=== PATIENT | male | born 1945 | race Caucasian/White ===

== ENCOUNTER → 2016-10-16 | Day surgery (SDC) | payer OTHER ==
[~2016-10-16] MED LIST: ACETAMINOPHEN PO; ACETAMINOPHEN500 M5 PO; ASPIRIN PO; ASPIRIN81 MG PO; ATORVASTATIN CA80 MG PO; BACTRIM DS TABL1 TA1 PO; BACTRIM DS TABL1 TAB PO; CELEXA PO; CIPRO250 MG PO; CRESTOR40 MG PO; DIGESTIVE PROB250 MG PO; FENOFIBRATE160 MG PO; FLOMAX0.4 M1 DOB; FLOMAX0.4 M1 PO; FLONASE16 GM; FLOVENT DI50 MCG/DIS INH; FLOVENT DISKU100 MCG INH; GLUCOPHAGE500 M1 PO; GLUCOPHAGE850 MG PO; GLUCOTROL PO; HYDROCODON-ACE1 EAC7; HYDROCODONE-APA1 T57 PO; KEFLEX PO; KEFLEX500 MG PO; LEVAQUIN750 MG PO; LIPITOR PO; LIPITOR80 MG PO; LISINOPRIL10 MG PO; LO-DOSE ASPIRIN81 M1 PO; MAGNESIUM400 MG PO; METFORMIN HCL500 M1 PO; NIASPAN1000 M1 PO; OMEPRAZOLE20 M2 PO; PRILOSEC PO; PROBIOTIC1 EAC1 PO; TEMAZEPAM PO; TRICOR PO; VITAMIN D-32000 UNI2 PO; VITAMIN D2000 UNIT PO; ZETIA PO; ZYRTEC10 M1 PO; ZYRTEC10 M2 PO
--- NOTE | ~2016-10-16 | OR ---
Unit #: [id number] #: [id number] Patient: PEDRO MARTINEZ [id number] [address] [place], [place] [address] [id number] MR#: [id number] NAME: PEDRO MARTINEZ ROOM: Date of Procedure: 10/16/2016 Admission Date: 10/16/2016 Surgeon: Hans Lopez M.D. : 1945 Attending Physician: Chano Alonso M.D. Primary Care Physician: Bran Santos M.D. PROCEDURE OPERATIVE NOTE PREOPERATIVE DIAGNOSIS Urinary retention. POSTOPERATIVE DIAGNOSIS Urinary retention. PROCEDURES PERFORMED 1. Cystoscopy. 2. Complex catheter placement. 3. Bladder irrigation. ANESTHESIA Local. INDICATION FOR PROCEDURE Mr. Martinez is a 71-year-old gentleman who is followed by my partner, Dr. Pedro Vail for BPH. He presented in urinary retention. He is on b.i.d. Flomax. The nursing staff was unable to pass a Jara catheter. The risks, benefits and alternatives including bleeding, infection, damage to adjacent structures, need for further surgery, as well as the risks of anesthesia were explained to the patient and informed consent was obtained. He wished to proceed. FINDINGS Two plus bilobar hyperplasia of the prostate with false passage in the posterior prostate. PROCEDURE The patient was placed in the supine position. Genitalia were prepped and draped in the usual sterile fashion. A Uro-jet was passed. I passed a flexible cystoscope. Visibility was somewhat poor due to blood in the urethra, but he had a false passage in the posterior urethra. I was able to look my way beyond this. His prostate has severe 2+ bilobar hyperplasia. Unlimited visibility of the bladder had no tumor, stones or masses. I passed a sensory wire into the bladder. I removed the cystoscope. I passed a 20-[employer]-tipped catheter. The urine was slightly bloody. It irrigated clear. The patient tolerated the procedure well without complications. PLAN The patient will follow up with Dr. Vail in one week. He may need consideration for surgical management of his urinary retention as he is on maximum dose of alpha liz. Unit #: [id number] #: [id number] Patient: PEDRO MARTINEZ Dictated by... Hans Lopez M.D. MDP/gz TD: 10/16/2016 13:57 JOB #: [id number] PROCEDURE OPERATIVE NOTE X Hans Lopez MD PROCEDURE OPERATIVE NOTE
[2016-10-16 09:28] LABS: URINE SOURCE CLEAN CATCH
[2016-10-16 09:34] LABS: BASOPHIL% 0.5 % (0-2.5); EOSINOPHIL% 0.2 % (0.0-7.0); HEMATOCRIT 42.5 % (38.0-50.0); HEMOGLOBIN 14.4 gm/dL (13.0-16.0); LYMPHOCYTE# 1.3 X10e3 (1.0-3.5); LYMPHOCYTE% 13.5 % (17.0-45.0); MEAN CELL VOLUME 87.1 FL (83-96); MEAN CORPUSCULAR HEMOGLOBIN 29.5 PG (28-34); MEAN CORPUSCULAR HGB CONC 33.8 g/dL (30-36); MEAN PLATELET VOLUME 8.8 FL (6.5-11.5); MONOCYTE# 0.4 X10e3 (0-1.0); MONOCYTE% 4.7 % (3.0-12.0); NEUTROPHIL# 7.7 X10e3 (1.5-7.1); NEUTROPHIL% 81.1 % (40-75); PLATELET COUNT 224 X10e3 (140-420); RED BLOOD COUNT 4.88 X10e (3.90-5.60); RED CELL DISTRIBUTION WIDTH 13.2 % (11.0-15.5); WHITE BLOOD COUNT 9.4 X10e3 (4.0-10.5)
[2016-10-16 09:35] LABS: URINE APPEARANCE TURBID; URINE BILIRUBIN NEG (NEG); URINE BLOOD 3+ (NEG); URINE COLOR RED; URINE GLUCOSE 500 MG/DL (NEG); URINE KETONE TRACE (NEG); URINE LEUKOCYTE ESTERASE 1+ (NEG); URINE NITRATE NEG (NEG); URINE PROTEIN 1+ (NEG); URINE SPECIFIC GRAVITY 1.018 (1.003-1.035); URINE UROBILINOGEN 0.2 MG/DL (NEG)
[2016-10-16 09:37] LABS: CULTURE INDICATED? YES; URBCS1 AUWI INNUM /[HPF] (0-2); URINE BACTERIA AUWI NEG (NEGATIVE); URINE SQUAMOUS EPITHELIAL CELL MOD /[HPF]
[2016-10-16 09:39] LABS: DIFF IND NO
[2016-10-16 09:56] LABS: BLOOD UREA NITROGEN 14 mg/dL (9-23); BUN/CREATININE RATIO 15.55; CALCIUM SERUM 9.4 mg/dL (8.4-10.2); CARBON DIOXIDE 20 mmol/L (22-31); CHLORIDE 99 mmol/L (100-111); CREATININE SERUM 0.9 mg/dL (0.6-1.4); GLOM FILT RATE Estimated ABOVE60 mL/min (>60); GLUCOSE FASTING 246 mg/dL (70-110); POTASSIUM 4.2 mmol/L (3.5-5.1); SODIUM 134 mmol/L (135-145)
[2016-10-16 10:06] LABS: URINE TRANSITIONAL EPI CELLS FEW /[HPF]
[2016-10-16 13:09] LABS: URINE SOURCE CATH
[2016-10-16 13:21] LABS: URINE APPEARANCE CLOUDY; URINE BILIRUBIN NEG (NEG); URINE BLOOD 3+ (NEG); URINE COLOR RED; URINE GLUCOSE 500 MG/DL (NEG); URINE KETONE TRACE (NEG); URINE LEUKOCYTE ESTERASE 1+ (NEG); URINE NITRATE NEG (NEG); URINE PH 5.5 (5-8); URINE PROTEIN 1+ (NEG); URINE SPECIFIC GRAVITY 1.016 (1.003-1.035); URINE UROBILINOGEN 0.2 MG/DL (NEG)
[2016-10-16 13:25] LABS: URBCS1 AUWI INNUM /[HPF] (0-2); URINE BACTERIA AUWI NEG (NEGATIVE); URINE SQUAMOUS EPITHELIAL CELL NONE SEEN /[HPF]
== END | disposition home or self-care (01) ==
LOC: CED 09:54 → CSUR 11:09
PROVIDERS: Emergency Medicine; Urology
DX: R33.9 Retention of urine, unspecified (principal); Z88.8 Allergy status to other drugs, medicaments and biological substances; Z79.899 Other long term (current) drug therapy; Z79.82 Long term (current) use of aspirin
CPT/HCPCS: 36415; 80048; 81003; 85025; 87086; 96374; 99285; J0690; J2270; J2405

== ENCOUNTER 2016-11-21 02:41 | Emergency (ER) | payer OTHER ==
[~2016-11-21 02:41] MED LIST changes: -ACETAMINOPHEN PO; -ASPIRIN81 MG PO; -ATORVASTATIN CA80 MG PO; -CIPRO250 MG PO; -FLOMAX0.4 M1 DOB; -FLOVENT DI50 MCG/DIS INH; -HYDROCODON-ACE1 EAC7; -METFORMIN HCL500 M1 PO; -PROBIOTIC1 EAC1 PO; -VITAMIN D-32000 UNI2 PO
[2016-11-21] MEDS ORDERED: CIPRO250 MG PO (02:48)
[2016-11-21] MEDS ORDERED: ACETAMINOPHEN PO (02:49)
[2016-11-21] MEDS ORDERED: ASPIRIN81 MG PO (02:49)
[2016-11-21] MEDS ORDERED: FENOFIBRATE160 MG PO (02:50)
[2016-11-21] MEDS ORDERED: ATORVASTATIN CA80 MG PO (02:50)
[2016-11-21] MEDS ORDERED: FLOVENT DI50 MCG/DIS INH (02:51)
[2016-11-21] MEDS ORDERED: LISINOPRIL10 MG PO (02:53)
[2016-11-21] MEDS ORDERED: GLUCOTROL PO (02:53)
[2016-11-21] MEDS ORDERED: MAGNESIUM400 MG PO (02:54)
[2016-11-21] MEDS ORDERED: METFORMIN HCL500 M1 PO (02:55)
[2016-11-21] MEDS ORDERED: CRESTOR40 MG PO (02:56)
[2016-11-21] MEDS ORDERED: OMEPRAZOLE20 M2 PO (02:56)
[2016-11-21] MEDS ORDERED: PROBIOTIC1 EAC1 PO (02:56)
[2016-11-21] MEDS ORDERED: FLOMAX0.4 M1 DOB (02:57)
[2016-11-21] MEDS ORDERED: ZYRTEC10 M1 PO (02:58)
[2016-11-21] MEDS ORDERED: VITAMIN D-32000 UNI2 PO (02:58)
[2016-11-21] MEDS ORDERED: HYDROCODON-ACE1 EAC7 (02:59)
[2016-11-21 03:07] LABS: BASOPHIL# 0.1 X10e3 (0-0.3); BASOPHIL% 0.4 % (0-2.5); HEMOGLOBIN 14.1 gm/dL (13.0-16.0); LYMPHOCYTE# 1.2 X10e3 (1.0-3.5); LYMPHOCYTE% 7.8 % (17.0-45.0); MEAN CELL VOLUME 87.6 FL (83-96); MEAN CORPUSCULAR HEMOGLOBIN 28.8 PG (28-34); MEAN CORPUSCULAR HGB CONC 32.9 g/dL (30-36); MEAN PLATELET VOLUME 8.6 FL (6.5-11.5); MONOCYTE# 0.7 X10e3 (0-1.0); MONOCYTE% 4.5 % (3.0-12.0); NEUTROPHIL# 13.5 X10e3 (1.5-7.1); NEUTROPHIL% 87.3 % (40-75); PLATELET COUNT 220 X10e3 (140-420); RED CELL DISTRIBUTION WIDTH 13.7 % (11.0-15.5); WHITE BLOOD COUNT 15.5 X10e3 (4.0-10.5)
[2016-11-21 03:08] LABS: DIFF IND YES
[2016-11-21 03:26] LABS: ALBUMIN SERUM 4.3 g/dL (3.5-5.0); BILIRUBIN,TOTAL 0.7 mg/dL (0.2-2.0); BUN/CREATININE RATIO 10.71; CALCIUM SERUM 9.3 mg/dL (8.4-10.2); CREATININE SERUM 1.4 mg/dL (0.6-1.4); GLOM FILT RATE Estimated 53.4 mL/min (>60); POTASSIUM 4.6 mmol/L (3.5-5.1)
[2016-11-21 03:29] LABS: PLATELET ESTIMATE NORMAL (NORMAL)
[2016-11-21 03:30] LABS: HYPERSEGMENTED POLYS PRESENT; SMUDGE CELLS 11 /100
[2016-11-21 03:31] LABS: RBC NORMAL YES
[2016-11-21 04:26] LABS: URINE SOURCE CLEAN CATCH
[2016-11-21 04:29] LABS: URINE APPEARANCE CLOUDY; URINE BILIRUBIN NEG (NEG); URINE BLOOD 3+ (NEG); URINE COLOR YELLOW; URINE GLUCOSE 500 MG/DL (NEG); URINE KETONE TRACE (NEG); URINE LEUKOCYTE ESTERASE 1+ (NEG); URINE NITRATE NEG (NEG); URINE PH 5.5 (5-8); URINE PROTEIN 2+ (NEG); URINE SPECIFIC GRAVITY 1.022 (1.003-1.035); URINE UROBILINOGEN 0.2 MG/DL (NEG)
[2016-11-21 04:33] LABS: CULTURE INDICATED? YES; URBCS1 AUWI 200-300 /[HPF] (0-2); URINE BACTERIA AUWI NEG (NEGATIVE); URINE SQUAMOUS EPITHELIAL CELL OCC /[HPF]; UWBCS1 AUWI 25-50 (0-5)
[2016-11-21 04:45] LABS: URINE YEAST PRESENT
== END 2016-11-21 09:55 | disposition home or self-care (01) ==
LOC: CED 02:41
PROVIDERS: Emergency Medicine
DX: R33.9 Retention of urine, unspecified (principal); Z88.8 Allergy status to other drugs, medicaments and biological substances; Z79.899 Other long term (current) drug therapy; Z79.82 Long term (current) use of aspirin
CPT/HCPCS: 36415; 51702; 80053; 81003; 85025; 87086; 96374; 96375; 99284; J1170; J2405

== ENCOUNTER → 2017-02-11 | Outpatient (CLI) | payer OTHER ==
[~2017-02-11] MED LIST changes: +ACETAMINOPHEN PO; +ASPIRIN81 MG PO; +ATORVASTATIN CA80 MG PO; +CIPRO250 MG PO; +FLOMAX0.4 M1 DOB; +FLOVENT DI50 MCG/DIS INH; +HYDROCODON-ACE1 EAC7; +METFORMIN HCL500 M1 PO; +PROBIOTIC1 EAC1 PO; +VITAMIN D-32000 UNI2 PO
--- NOTE | ~2017-02-11 | MR113 ---
[facility] A Service of [facility] & [facility] RADIOLOGY TEXT RESULTS PATIENT: PEDRO HUYNH LOCATION: [facility] : 49 UNIT #: [id number] AGE: [address]: Bran Santos MD SEX: M ORDER DR: [id number] [facility] [address] [facility] [place], [place] [address] [id number] O MR#: [id number] #: [id number] NAME: PEDRO HUYNH : 1945 SEX: M STUDY DATE/TIME: 02/11/2017 17:33 UNIT: [facility] ROOM: STUDY DESCRIPTION: MR Lumbar Wo Contrast Attending Physician: Bran Santos M.D. Ordering Physician: Bran Santos M.D. Primary Care Physician: Bran Santos M.D. MRI CENTER REPORT This report is preliminary unless electronic signature is present. EXAM MRI of the lumbar spine without contrast dated 02/11/2017 COMPARISON MRI lumbar spine without contrast dated 05/07/2013 HISTORY Chronic numbness in both legs and feet while standing. It has been going on for many years, chronic. Patient had prostate surgery in October 2016. FINDINGS Multisequence multiplanar imaging of the lumbar spine was obtained without contrast. Vertebral body heights and alignment are preserved. Small Schmorl's nodes are noted at the thoracolumbar junction. Degenerative disc disease is seen from L2-3 to L4-5 and to a lesser degree at other levels. Conus terminates at L1. Signal of conus and cauda equina are within normal limits. Pre and paravertebral soft tissues do not demonstrate any significant abnormality. L1-2: Concentric disc bulge with suspicious small tiny central protrusion, mild canal stenosis and mild inferior bilateral neural foraminal encroachment. Minimal bilateral facet changes. Stable. L2-3: Moderate disc bulge which is prominent in bilateral foraminal to extraforaminal regions suggestive of superimposed broad-based protrusions. It is slightly worse on the right. Mild bilateral neural foraminal narrowing, severe canal stenosis, moderate right and mild left lateral recess stenosis. Minimal bilateral facet changes are seen. L3-4: Disc osteophyte complex with superimposed bilateral foraminal to extraforaminal broad-based protrusions particularly in the left. It extends left central region. There is severe canal stenosis, moderate bilateral facet hypertrophic changes, mild right and moderate left lateral recess stenosis with mild right and moderate left neural foraminal STS. [facility] A Service of [facility] & [facility] RADIOLOGY TEXT RESULTS PATIENT: PEDRO HUYNH LOCATION: [facility] : 47 UNIT #: [id number] AGE: [address]: Bran Santos MD SEX: M ORDER DR: narrowing. Stable. L4-5: Moderate disc bulge with mild to moderate right and mild left facet hypertrophic change. Moderate bilateral ligamentum flavum thickening is noted with severe canal stenosis. Moderate bilateral lateral recess stenosis is seen with [id number] bilateral neural foraminal narrowing. Relatively stable. L5-S1: Concentric disc bulge with tiny central protrusion. Mild bilateral facet changes, worse on the right. There is improvement in the spur/synovial tissue noted in the anteromedial aspect of the right facet joint and adjacent right ligamentum flavum. There is mild to moderate right lateral recess stenosis, mild inferior bilateral neural foraminal narrowing and borderline size to mild canal stenosis. Slightly improved. IMPRESSION 1. No significant interval worsening is seen. Redemonstrated are degenerative changes at multiple levels, worse at L4-5 and L3-4 followed by L2-3 levels when compared to the other levels but relatively stable when compared to the previous study. Varying degrees of canal stenosis, lateral recess stenosis and neural foraminal narrowing are seen. 2. The synovial soft tissue/cyst in the anteromedial aspect of the right facet joint extending to the right ligamentum flavum is smaller when compared to the prior study suggestive of mild improvement. Dictated by... Bronson Allison M.D. THIS IS AN ELECTRONICALLY VERIFIED REPORT Bronson Allison M.D. at 02/13/2017 6:06 PM KAREN/hal TD: 02/12/2017 14:44 JOB #: [id number] MRI CENTER REPORT Page 1 of 1 COPY
== END | disposition home or self-care (01) ==
LOC: CMRI 16:10
DX: M51.36 Other intervertebral disc degeneration, lumbar region (principal); M47.896 Other spondylosis, lumbar region; M48.06 Spinal stenosis, lumbar region
CPT/HCPCS: 72148